=== PATIENT | female | born 1990 | race African-American/Black ===

== ENCOUNTER 2016-11-05 11:39 | Emergency (ER) | payer SELFPAY ==
[~2016-11-05] VITALS: Ht 162.6 cm; Wt 57.6 kg
[~2016-11-05 11:39] MED LIST: CLIN150C14 PO
--- NOTE | 2016-11-05 12:16 | PHYS DOC ---
Past Medical History Past Medical History: No Pertinent History Past Surgical History: No Surgical History Alcohol Use: Occasionally Drug Use: None Adult General Chief Complaint Chief Complaint: MECHANICAL FALL HPI HPI Patient is a 26 year old female presents the ED complaining of left jaw pain 2 hours. Patient states she tripped and fell down the stairs and hit her face and head. States she feels like she bit her cheek. Complains of left jaw pain and headache. Discussed pain as sharp. Rates pain as 6 out of 10. Denies symptoms prior to fall, neck pain, chest pain, shortness of breath, LOC, vision changes or nausea/vomiting. Review of Systems Review of Systems Constitutional: Denies fever or chills [] Eyes: Denies change in visual acuity, redness, or eye pain [] HENT: Complains of jaw pain. Denies nasal congestion or sore throat [] Respiratory: Denies cough or shortness of breath [] Cardiovascular: No additional information not addressed in HPI [] GI: Denies abdominal pain, nausea, vomiting, bloody stools or diarrhea [] : Denies dysuria or hematuria [] Musculoskeletal: Denies back pain or joint pain [] Integument: Denies rash or skin lesions [] Neurologic: Complains of headache Denies focal weakness or sensory changes [] Endocrine: Denies polyuria or polydipsia [] Current Medications Current Medications Current Medications Medications (Trade) Dose Ordered Sig/Glen Start Time Stop Time Status Last Admin Dose Admin Ibuprofen (Motrin) 800 mg 1X ONCE 11/05/16 12:30 11/05/16 12:31 DC 11/05/16 12:48 800 MG Tetanus/ Diphtheria Toxoids (Tenivac Syringe) 0.5 ml ONCE ONCE 11/05/16 12:30 11/05/16 12:31 DC 11/05/16 12:51 0.5 ML Allergies Allergies Allergies Coded Allergies Type Severity Reaction Last Updated Verified No Known Drug Allergies 10/25/15 No Physical Exam Physical Exam Constitutional: Well developed, well nourished, no acute distress, non-toxic appearance. [] HENT: Normocephalic, atraumatic, bilateral external ears normal, oropharynx moist, MILD 1 CM LEFT INNER BUCCAL MUCOSA ABRASION/CUT. MILD LEFT MANDIBLE TENDERNESS/SWELLING. UNABLE TO FULLY OPEN MOUTH. no oral exudates, nose normal. [] Eyes: PERRLA, EOMI, conjunctiva normal, no discharge. [] Neck: Normal range of motion, no tenderness, supple, no stridor. [] Cardiovascular:Heart rate regular rhythm, no murmur [] Lungs & Thorax: Bilateral breath sounds clear to auscultation [] Abdomen: Bowel sounds normal, soft, no tenderness, no masses, no pulsatile masses. [] Skin: Warm, dry, no erythema, no rash. [] Back: No tenderness, no CVA tenderness. [] Extremities: No tenderness, no cyanosis, no clubbing, ROM intact, no edema. [] Neurologic: Alert and oriented X 3, normal motor function, normal sensory function, no focal deficits noted. [] Psychologic: Affect normal, judgement normal, mood normal. [] Current Patient Data Vital Signs Vital Signs Date Time Temp Pulse Resp B/P (MAP) Pulse Ox O2 Delivery O2 Flow Rate FiO2 11/05/16 13:50 77 16 110/74 (86) 98 Room Air 11/05/16 11:58 98.5 98.5 EKG EKG [] Radiology/Procedures Radiology/Procedures EXAM: Head CT without contrast; maxillofacial bone CT without contrast. HISTORY: Fall. TECHNIQUE: Computed tomographic images of the head and axial facial bones were obtained without contrast. One or more of the following individualized dose reduction techniques were utilized for this examination: 1. Automated exposure control. 2. Adjustment of the mA and/or kV according to patient size. 3. Use of iterative reconstruction technique. COMPARISON: None. FINDINGS: Head: There is no acute or subacute hemorrhage. There is no mass effect or midline shift. There is no hydrocephalus. The crow and white matter differentiation pattern is intact. There is inferior left frontal sinus mucosal thickening. The mastoid air cells are clear. No calvarial lesion is seen. Maxillofacial bones: There is complete opacification of the right maxillary sinus. There is mild left maxillary sinus and inferior left frontal sinus mucosal thickening. There is obstruction of the right ostiomeatal meatal unit. There is no significant nasal septal deviation. The orbits are unremarkable. The temporomandibular joints are unremarkable. There is a minimally displaced fracture of the posterior body of the left mandible. The fracture line extends through the root of the left third mandibular molar. There is lucency surrounding the root of the left second bicuspid, likely due to a periapical abscess. There are associated caries within the left second mandibular bicuspid and first molar. IMPRESSION: 1. Minimally displaced fracture of the posterior body of the left mandible with fracture line extension through the root of the third mandibular molar. 2. Suspected periapical abscess surrounding the root of the left second bicuspid, and associated dental caries within the left second mandibular bicuspid and first molar. 3. No acute intracranial finding. 4. Right maxillary sinus disease with obstruction of the ostiomeatal unit. There is also mucosal thickening involving the inferior left frontal and maxillary sinuses. Impressions: Discussed imaging with patient. Patient's pain improved. Vital stable, no acute distress. Discussed case with [facility] oral surgery at [facility] whom recommends transfer to their ER with CT disc and report for further evaluation. Discussed case with accepting physician Dr. Conte in ED at [facility]. Patient wants to be transfered via POV. Tetanus up to dated. Discussed the need to go directly to [facility]. Patient and family understand and agree with plan, Will go directly to [facility]. Discussed case with attending physician. Agrees with eval and plan. Course & Med Decision Making Course & Med Decision Making Pertinent Labs and Imaging studies reviewed. (See chart for details) [] Dragon Disclaimer Dragon Disclaimer This electronic medical record was generated, in whole or in part, using a voice recognition dictation system. Departure Departure Impression: Primary Impression: Fracture of left mandibular angle Additional Impression: Periapical abscess Disposition: 05 TRANSFER OTHER ([facility] ER for OMFS consult.) Condition: STABLE Referrals: NO PCP (PCP) Patient Instructions: Mandibular Fracture Problem Qualifiers IVETT HARP Nov 05, 2016 12:16
[2016-11-05] MEDS ORDERED: TETANUS AND DIPHTHERIA TOX/PF 0.5 ML DISP.SYRIN. VAX IM ONE (12:30)
[2016-11-05] MEDS ORDERED: IBUPROFEN 800 MG TABLET. PO ONE (12:30)
--- NOTE | 2016-11-05 13:03 | RAD ---
EXAM: Head CT without contrast; maxillofacial bone CT without contrast. HISTORY: Fall. TECHNIQUE: Computed tomographic images of the head and axial facial bones were obtained without contrast. One or more of the following individualized dose reduction techniques were utilized for this examination: 1. Automated exposure control. 2. Adjustment of the mA and/or kV according to patient size. 3. Use of iterative reconstruction technique. COMPARISON: None. FINDINGS: Head: There is no acute or subacute hemorrhage. There is no mass effect or midline shift. There is no hydrocephalus. The crow and white matter differentiation pattern is intact. There is inferior left frontal sinus mucosal thickening. The mastoid air cells are clear. No calvarial lesion is seen. Maxillofacial bones: There is complete opacification of the right maxillary sinus. There is mild left maxillary sinus and inferior left frontal sinus mucosal thickening. There is obstruction of the right ostiomeatal meatal unit. There is no significant nasal septal deviation. The orbits are unremarkable. The temporomandibular joints are unremarkable. There is a minimally displaced fracture of the posterior body of the left mandible. The fracture line extends through the root of the left third mandibular molar. There is lucency surrounding the root of the left second bicuspid, likely due to a periapical abscess. There are associated caries within the left second mandibular bicuspid and first molar. IMPRESSION: 1. Minimally displaced fracture of the posterior body of the left mandible with fracture line extension through the root of the third mandibular molar. 2. Suspected periapical abscess surrounding the root of the left second bicuspid, and associated dental caries within the left second mandibular bicuspid and first molar. 3. No acute intracranial finding. 4. Right maxillary sinus disease with obstruction of the ostiomeatal unit. There is also mucosal thickening involving the inferior left frontal and maxillary sinuses.
[2016-11-05 13:50] VITALS: BP 110/74
== END 2016-11-05 14:07 | disposition home or self-care (01) ==
LOC: ER 11:39
DX: S02.652A Fracture of angle of left mandible, initial encounter for closed fracture (principal); K04.7 Periapical abscess without sinus; R51 Headache; W10.9XXA Fall (on) (from) unspecified stairs and steps, initial encounter; Y93.89 Activity, other specified; Y92.89 Other specified places as the place of occurrence of the external cause; Y99.8 Other external cause status
CPT/HCPCS: 70450; 70486; 90471; 90714; 99285-25

== ENCOUNTER 2018-08-14 14:43 | Emergency (ER) | payer SELFPAY ==
[~2018-08-14] VITALS: Ht 162.6 cm; Wt 59.0 kg
[2018-08-14] MEDS ORDERED: MECLIZINE HCL 12.5 MG TABLET. PO ONE (15:30)
--- NOTE | 2018-08-14 15:36 | PHYS DOC ---
Past Medical History Past Medical History: No Pertinent History Past Surgical History: No Surgical History Alcohol Use: Occasionally Drug Use: None Adult General Chief Complaint Chief Complaint: NAUSEA/VOMITING/DIARRHA HPI HPI Patient is a 27 year old who presents with dizziness, intermittent nausea, and vomiting, as well as bilateral ringing in her ears has been ongoing since Friday. She rates her pain as 7 out of 10 and describes it as dizzy in natur e. The patient states she took aspirin at home to try to help her symptoms however this did not help. States she's never had these symptoms before. 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 Describes the dizziness as the room spinning. Review of Systems Review of Systems Constitutional: Denies fever or chills [] Eyes: Denies change in visual acuity, redness, or eye pain [] HENT: Denies nasal congestion or sore throat [] Respiratory: Denies cough or shortness of breath [] Cardiovascular: No additional information not addressed in HPI [] GI: Reports nausea, and vomiting. Denies abdominal pain,bloody stools or diarrhea [] : Denies dysuria or hematuria [] Musculoskeletal: Denies back pain or joint pain [] Integument: Denies rash or skin lesions [] Neurologic: Reports dizziness. Denies headache, focal weakness or sensory changes [] Endocrine: Denies polyuria or polydipsia [] Complete systems were reviewed and found to be within normal limits, except as documented in this note. Current Medications Current Medications Current Medications Medications (Trade) Dose Ordered Sig/Glen Start Time Stop Time Status Last Admin Dose Admin Meclizine HCl (Antivert) 25 mg 1X ONCE 08/14/18 15:30 08/14/18 15:31 DC 08/14/18 15:45 25 MG Allergies Allergies Allergies Coded Allergies Type Severity Reaction Last Updated Verified No Known Drug Allergies 10/25/15 No Physical Exam Physical Exam Constitutional: Well developed, well nourished, no acute distress, non-toxic appearance. [] HENT: Normocephalic, atraumatic, bilateral external ears normal, oropharynx moist, no oral exudates, nose normal. [] Eyes: PERRLA, EOMI, conjunctiva normal, no discharge. [] Neck: Normal range of motion, no tenderness, supple, no stridor. [] Cardiovascular:Heart rate regular rhythm, no murmur [] Lungs & Thorax: Bilateral breath sounds clear to auscultation [] Abdomen: Bowel sounds normal, soft, no tenderness, no masses, no pulsatile masses. [] Skin: Warm, dry, no erythema, no rash. [] Back: No tenderness, no CVA tenderness. [] Extremities: No tenderness, no cyanosis, no clubbing, ROM intact, no edema. [] Neurologic: Alert and oriented X 3, Positive Romberg test, positive fabricio-hallpike test. Psychologic: Affect normal, judgement normal, mood normal. [] Current Patient Data Vital Signs Vital Signs Date Time Temp Pulse Resp B/P (MAP) Pulse Ox O2 Delivery O2 Flow Rate FiO2 08/14/18 15:12 98.1 95 20 134/85 (101) 98 Room Air 98.1 Lab Values Laboratory Tests Test 08/14/18 15:40 08/14/18 15:43 Urine Color Yellow Urine Clarity Cloudy Urine pH 8.0 Urine Specific [place] >=1.030 Urine Protein 30 mg/dL (NEG-TRACE) Urine Glucose (UA) Negative mg/dL (NEG) Urine Ketones (Stick) 40 mg/dL (NEG) Urine Blood Negative (NEG) Urine Nitrite Negative (NEG) Urine Bilirubin Negative (NEG) Urine Urobilinogen Dipstick 1.0 mg/dL (0.2 mg/dL) Urine Leukocyte Esterase Negative (NEG) Urine RBC Occ /HPF (0-2) Urine WBC 1-4 /HPF (0-4) Urine Squamous Epithelial Cells Occ /LPF Urine Bacteria 0 /HPF (0-FEW) Urine Mucus Mod /LPF POC Urine HCG, Qualitative Hcg negative (Negative) EKG EKG [] Radiology/Procedures Radiology/Procedures [] Course & Med Decision Making Course & Med Decision Making Pertinent Labs and Imaging studies reviewed. (See chart for details) Patient symptoms appear to be benign positional vertigo. Patient is dizzy, and nauseous intermittently with ear ringing and the room is spinning. Has positive romberg, and fabricio-hallpike. Will give Meclizine and see if symptoms improve. Will also get a UA/Urine test. Urine is negative, UA is negative, Patient feels much improved after meclizine. Romberg is now negative. Gave 750 mL of oral water to patient to PO challenge and she passed. Will discharge home with a script for Meclizine. Celia Disclaimer Celia Disclaimer This electronic medical record was generated, in whole or in part, using a voice recognition dictation system. Departure Departure Impression: Primary Impression: Benign positional vertigo Disposition: HOME, SELF-CARE Condition: STABLE Referrals: NO PCP (PCP) Patient Instructions: Benign Positional Vertigo Additional Instructions: Thank you for visiting [facility]. We appreciate you trusting us with your care. If any additional problems come up don't hesitate to return to visit us. Please follow up with your primary care provider so they can plan additional care if needed and know about the problem that you had. If symptoms worsen come back to the Emergency Department. Any concerning symptoms that start such as chest pain, shortness of air, weakness or numbness on one side of the body, running high fevers or any other concerning symptoms return to the ER. Please fill your medications at any pharmacy and follow the prescription instructions. Scripts Meclizine Hcl (MECLIZINE HCL) 25 Mg Tablet 1 TAB PO PRN TID PRN for DIZZINESS, #30 TAB Prov: CORDELIA HANEY APRN 08/14/18 Problem Qualifiers Primary Impression: Benign positional vertigo Laterality: bilateral Qualified Codes: H81.13 - Benign paroxysmal vertigo, bilateral CORDELIA HANEY APRN Aug 14, 2018 15:36
[2018-08-14] MEDS ORDERED: MECL25TA3 PO (16:20)
[2018-08-14 16:30] LABS: BILIRUBIN,URINE NEGATIVE (NEG); CLARITY,URINE CLOUDY; COLOR,URINE YELLOW; NITRITE,URINE NEGATIVE (NEG); PROTEIN,URINE 30 mg/dL (NEG-TRACE)
[2018-08-14 16:44] LABS: BACTERIA,URINE 0 /HPF (0-FEW); RBC,URINE OCC /HPF (0-2); SQUAMOUS EPITHELIAL CELL,UR OCC /LPF
[2018-08-14 16:46] VITALS: BP 91/50
== END 2018-08-14 17:07 | disposition home or self-care (01) ==
LOC: ER 14:43
DX: H81.13 Benign paroxysmal vertigo, bilateral (principal); R11.2 Nausea with vomiting, unspecified
CPT/HCPCS: 81001; 81025; 99283; J8597